=== PATIENT | male | born 1975 ===

== ENCOUNTER 2021-01-21 22:29 | Emergency (ER) | payer OTHER ==
[2021-01-22 00:42] LABS: HEMOGLOBIN 14.7 gm/dl (14.0-17.5); RED BLOOD COUNT 5.04 M/UL (4.20-5.50); WHITE BLOOD COUNT 9.3 K/UL (4.5-11.0)
[2021-01-22 01:14] LABS: BUN/CREATININE RATIO 16 (0-10)
[2021-01-22] MEDS ORDERED: VENTOLIN HFA 66.7 GM INH (03:27)
== END 2021-01-22 03:53 | disposition home or self-care (01) ==
LOC: ER1 22:29
PROVIDERS: Physician Assistant
DX: U07.1 COVID-19 (principal)
CPT/HCPCS: 71045; 80053; 82550; 82553; 83690; 83735; 83874; 84484; 85025; 93005; 96374; 99284; J1100